=== PATIENT | male | born 1965 | race Caucasian/White ===

== ENCOUNTER 2017-09-18 10:27 | Inpatient (IN) ==
[2017-09-18] MEDS ORDERED: Naloxone 0.4 MG/ML INJ IVP PRN (16:44)
[2017-09-18] MEDS ORDERED: Acetaminophen 325 MG TABLET PO PRN (17:38)
--- NOTE | 2017-09-18 19:07 | Internal Med History&Physical ---
Date of Encounter: 09/18/17 Time of Encounter: 11:00 Internal Medicine - H&P: HPI Chief complaint: Shortness of breath Admitted From: Intrahospital Transfer Plans for Post Hospital Care: Home History of present illness: Patient is a 52-year-old male with no significant past medical history who was transferred from [place] inpatient unit due to acute systolic heart failure. Patient reports a 4 month history of dyspnea on exertion and chest pressure which has gradually gotten worse over the last 2 months so decided to go to the hospital for evaluation. During inpatient stay at [facility], an echocardiogram was done which showed EF of 15%. Patient was transferred to [facility] inpatient for cardiology consult for determination if reduced EF due to ischemia or some other cause needing a pacemaker. Past Med Surg Social Fam HX - Past Medical History Medical history: no medical history Psychiatric history: no psych history - Past Surgical History Surgical History: no surgical history - Social History Smoking Status: Never smoker Smokeless Tobacco Status: No Alcohol use: none Drug use: none - Family History Father Adopted: No Family Member Ethnicity: Non- Living Status: Hx Family Cardiac Disorders: Yes Hx Family Respiratory Disorders: No Hx Family Cancer: No Hx Family GI Disorders: No Hx Family Endocrine Disorder: Yes Hx Family Neuromuscular Disorders: No Hx Family Neurologic Disorders: No Hx Family HEENT Disorders: No Hx Family Autoimmune Disorders: No Internal Medicine - H&P: Meds Albuterol Sulfate [Albuterol Inhaler] 1 - 2 puff IH Q6HR PRN #1 hfa.aer.ad 08/06 [Rx] Montelukast [Singulair] 10 mg PO HS #30 tablet 08/06/17 [Rx] 3 Allergy/AdvReac Type Severity Reaction Status Date / Time Amoxicillin Allergy Hives Verified 09/18/17 16:52 latex Allergy Rash Verified 09/18/17 16:52 All Systems PM: A 10-system review of systems was performed and is negative for pertinent findings except as documented above in the HPI. - Constitutional Vitals: Temp Pulse Resp BP Pulse Ox 98.3 F 108 19 137/81 97 09/18/17 16:51 09/18/17 16:51 09/18/17 16:51 09/18/17 16:51 09/18/17 16:51 General appearance: Present: A&O X 3, no acute distress - Eye Eye exam: Present: normal appearance - ENT ENT exam: Present: normal exam - Respiratory Respiratory exam: Present: CTAB. Absent: respiratory distress - Cardiovascular Cardiovascular exam: Present: RRR, +S1, +S2. Absent: diastolic murmur, gallop, rubs, systolic murmur - GI/Abdominal GI/Abdominal exam: Present: normal bowel sounds, soft, no peritoneal signs. Absent: distended, tenderness - Extremities Exam Extremities exam: Absent: pedal edema - Neurological Exam Neurological exam: Present: oriented X3 - Psychiatric Psychiatric exam: Present: normal mood - Skin Skin exam: Present: normal color - Assessment and plan (1) Acute systolic heart failure Current Visit: Yes Status: Acute Assessment and plan: During inpatient stay at [facility], an echocardiogram was done which showed EF of 15%. Will continue IV diuresis Cardiology consulted and appreciate recommendations (2) DVT prophylaxis Current Visit: Yes Status: Acute Assessment and plan: Subcutaneous heparin - Time Spent With Patient Total time spent is greater than 50% in coordination of care (as documented) at patient's floor/unit and/or counseling patient:
[2017-09-18] MEDS: *HR* Heparin 5,000 UNIT/ML VIAL SQ SCH (21:08)
[2017-09-18] MEDS: Furosemide 20 MG/2 ML VIAL IVP SCH (21:08)
[2017-09-19 04:10] LABS: Basophils # 0.1 K/mcL (0.0-0.2); Basophils % 0.8 %; Eosinophils # 0.2 K/mcL (0.0-0.6); Eosinophils % 1.9 %; Hematocrit 40.3 % (37.5-50.1); Hemoglobin 13.5 g/dL (12.9-16.9); Immature Granulocytes % 0.2 % (0-4); Lymphocytes # 2.1 K/mcL (0.6-4.6); Lymphocytes % 21.9 %; Mean Corpuscular HGB Conc 33.5 g/dL (31.6-35.5); Mean Corpuscular Hemoglobin 29.5 pg (28.0-33.3); Mean Platelet Volume 9.3 fL (9.4-12.4); Monocytes # 0.7 K/mcL (0.0-1.3); Neutrophils # 6.7 K/mcL (1.6-8.9); Platelet Count 328 K/mcL (140-400); Red Blood Count 4.58 M/mcL (4.19-5.50); Red Cell Distribution Width 13.5 % (11.5-14.5); Segmented Neutrophils % 68.2 %
[2017-09-19 05:07] LABS: BUN/Creatinine Ratio 18 (6-26); Blood Urea Nitrogen 17 mg/dL (6-20); Calcium 9.1 mg/dL (8.6-10.3); Carbon Dioxide 24 mEq/L (23-29); Chloride 102 mEq/L (98-107); Glucose 112 mg/dL (70-105); Osmolality,Calculated 282 (280-300); Potassium 3.7 mEq/L (3.5-5.1); Sodium 135 mEq/L (136-145); eGFR For African Americans > 60 (> 60); eGFR For Non-African Americans > 60 (> 60)
[2017-09-19] MEDS: *HR* Heparin 5,000 UNIT/ML VIAL SQ SCH ×3 (06:12→21:00)
--- NOTE | 2017-09-19 07:07 | Cardiology Consult Note ---
Date of Encounter: 09/19/17 Time of Encounter: 08:00 Assessment and Plan (1) Acute systolic heart failure Current Visit: Yes Status: Acute A/R/B of [facility] discussed with patient including 1% chance of [place]//CVA/CABG/FAWN /bleeding. Pt aware and agreeable with proceeding to evaluate for ischemic cause of systolic CHF. Evidence based BB - coreg 3.125mg po BID and lisinopril 2.5mg daily. Continue diuresis until euvolemic, will need maintenance diuretic and may benefit from aldactone. (2) Hypertension Current Visit: No Status: Chronic coreg Qualifiers: Hypertension type: essential hypertension Qualified Code(s): I10 - Essential (primary) hypertension Discussion w patient/family: The assessment and plan as outlined above was discussed with the patient and/or family members who expressed understanding and agreement. All questions were answered. Thank you for involving us in the care of your patient. Please call with any questions. History of Present Illness Consult date: 09/19/17 Consult reason: CHF Chief complaint: dyspnea History of present illness: Mr. Burton is a 52 year old male with no previous cardiac history presented to [place] with progressive dyspnea on exertion, weight gain and edema over last 2 months. TTE revealed EF 15%. He denies alcohol abuse and does not recall a viral illness. He has occasional chest tightness. Additionally, he notes his sister (<65) with premature CAD. Past Med Surg Social Fam HX - Past Medical History Medical history: no medical history Psychiatric history: no psych history - Past Surgical History Surgical History: no surgical history - Social History Smoking Status: Never smoker Smokeless Tobacco Status: No Alcohol use: none Drug use: none - Family History Father Adopted: No Family Member Ethnicity: Non- Living Status: Hx Family Cardiac Disorders: Yes Hx Family Respiratory Disorders: No Hx Family Cancer: No Hx Family GI Disorders: No Hx Family Endocrine Disorder: Yes Hx Family Neuromuscular Disorders: No Hx Family Neurologic Disorders: No Hx Family HEENT Disorders: No Hx Family Autoimmune Disorders: No Medications and Allergies Albuterol Sulfate [Albuterol Inhaler] 1 - 2 puff IH Q6HR PRN #1 hfa.aer.ad 08/06 [Rx] Montelukast [Singulair] 10 mg PO HS #30 tablet 08/06/17 [Rx] 3 Allergy/AdvReac Type Severity Reaction Status Date / Time Amoxicillin Allergy Hives Verified 09/18/17 16:52 latex Allergy Rash Verified 09/18/17 16:52 All Systems Review: The remainder of the systems were reviewed and are negative - Constitutional Constitutional: no chills, no fever(s) - EENT Eyes: no blurred vision, no loss of vision Nose, mouth and throat: no bleeding gums, no epistaxis - Cardiovascular Cardiovascular: chest pain with exertion, no chest pain at rest - Respiratory Respiratory: no hemoptysis, no wheezing - Gastrointestinal Gastrointestinal: no hematemesis, no hematochezia - Genitourinary Genitourinary: no dysuria, no hematuria - Musculoskeletal Musculoskeletal: no back pain, no myalgias - Integumentary Integumentary: no rash, no unusual bruising - Neurological Neurological: no syncope, no tingling - Psychiatric Psychiatric: no hallucinations, no panic attacks - Hematological/Lymphatic Hematologic/Lymphatic: no easy bleeding, no easy bruising Physical Examination Vital Signs, Last 4 Hours Temp Pulse Resp BP Pulse Ox 09/19/17 03:49 99.0 F 112 18 151/97 97 General: Conversant HEENT: Atraumatic Neck: No JVD Cardiac: Reg Rate and Rhythm Lungs: Other Neuro: Alert and responsive Abdomen: Soft Skin: No rashes noted on visualized skin Musculoskeletal: No Chest Wall Tenderness Extremities: No Edema Results 09/19/17 03:36 09/19/17 03:36 Lab Results 09/19/17 09/19/17 03:36 03:36 WBC 9.8 Hgb 13.5 Hct 40.3 Plt Count 328 Sodium 135 L Potassium 3.7 Chloride 102 Carbon Dioxide 24 BUN 17 Creatinine 0.97 Glucose 112 H Calcium 9.1 - Imaging and Cardiology Echo: image reviewed (severe systolic chf) Consult Discharge Plan - Plan Referrals: NONE,PCP [Primary Care Provider] - Devonte Chau [Family Provider] -
[2017-09-19] MEDS: Furosemide 20 MG/2 ML VIAL IVP SCH ×2 (08:13→16:04)
[2017-09-19] MEDS: Isosorbide MONOnitrate (24 HR) 30 MG TAB.ER.24H PO SCH (12:43)
--- NOTE | 2017-09-19 21:36 | Internal Med Progress Note ---
Date of Encounter: 09/19/17 Time of Encounter: 16:47 - Assessment and plan (1) Acute systolic heart failure Current Visit: Yes Status: Acute Assessment and plan: Cardiology consulted; appreciate input. Will await their recommendations. Continue IV lasix 20 mg BID for the time being. (2) DVT prophylaxis Current Visit: Yes Status: Acute Assessment and plan: Continue SQ heparin. - Time Spent With Patient Total time spent is greater than 50% in coordination of care (as documented) at patient's floor/unit and/or counseling patient: less than 15 minutes - Subjective Interval history: Patient had no acute events overnight. He is doing well today. He seems to be in good spirits. He has no complaints at this time. He denies chest pain, SOB , fever, chills, nausea, vomiting, or abdominal pain. He is putting out good urine per nursing staff. - Constitutional Vitals: Temp Pulse Resp BP Pulse Ox 98.2 F 103 18 103/58 94 09/19/17 19:59 09/19/17 19:59 09/19/17 19:59 09/19/17 19:59 09/19/17 19:59 General appearance: Present: cooperative, A&O X 3, pleasant, no acute distress, answers questions appropriately - Respiratory Respiratory exam: Present: CTAB. Absent: accessory muscle use, rales, rhonchi, wheezes Additional comments: Normal WOB - Cardiovascular Cardiovascular exam: Present: RRR, +S1, +S2. Absent: diastolic murmur, gallop, rubs, systolic murmur Additional comments: No BLE edema - GI/Abdominal GI/Abdominal exam: Present: normal bowel sounds, soft. Absent: distended, hepatomegaly, mass, splenomegaly, tenderness - Psychiatric Psychiatric exam: Present: normal affect, normal mood. Absent: agitated, anxious, depressed - Skin Skin exam: Present: dry, intact, warm. Absent: cyanosis, rash Internal Medicine: Result - Labs CBC & Chem 7: 09/19/17 03:36 09/19/17 03:36 Labs: Short CBC 09/19/17 Range/Units 03:36 WBC 9.8 (4.3-11.1) K/mcL Hgb 13.5 (12.9-16.9) g/dL Hct 40.3 (37.5-50.1) % Plt Count 328 (140-400) K/mcL Neutrophils # 6.7 (1.6-8.9) K/mcL BMP 09/19/17 03:36 Sodium 135 L Potassium 3.7 Chloride 102 Carbon Dioxide 24 BUN 17 Creatinine 0.97 Glucose 112 H Calcium 9.1 Consult Discharge Plan - Plan Referrals: NONE,PCP [Primary Care Provider] - Devonte Chau [Family Provider] -
[2017-09-20 03:35] LABS: BUN/Creatinine Ratio 19 (6-26); Blood Urea Nitrogen 19 mg/dL (6-20); Calcium 9.4 mg/dL (8.6-10.3); Carbon Dioxide 24 mEq/L (23-29); Chloride 103 mEq/L (98-107); Glucose 108 mg/dL (70-105); Osmolality,Calculated 287 (280-300); Potassium 4.1 mEq/L (3.5-5.1); Sodium 137 mEq/L (136-145); eGFR For African Americans > 60 (> 60); eGFR For Non-African Americans > 60 (> 60)
[2017-09-20] MEDS: *HR* Heparin 5,000 UNIT/ML VIAL SQ SCH ×3 (05:52→23:05)
[2017-09-20] MEDS ORDERED: Verapamil 5 MG/2 ML VIAL ONE (07:36)
[2017-09-20] MEDS ORDERED: 0.9 % Sodium Chloride 1,000 ML ONE ×2 (07:36→07:52)
[2017-09-20] MEDS ORDERED: *HR* Heparin 10,000 UNIT/10 ML VIAL ONE (07:36)
[2017-09-20] MEDS ORDERED: Nitroglycerin 1,000 MCG/10 ML VIAL IV ONE (07:36)
[2017-09-20] MEDS ORDERED: Heparin 1,000 UNITS/500 mL 500 ML ONE (07:36)
[2017-09-20] MEDS ORDERED: ISOVUE-370 200 ML INFUS..BTL IV ONE (07:36)
[2017-09-20] MEDS ORDERED: *HR* Midazolam HCl 2 MG/2 ML VIAL ONE (07:54)
[2017-09-20] MEDS ORDERED: *HR* FentaNYL (PF) 100 MCG/2 ML VIAL ONE (07:54)
--- NOTE | 2017-09-20 08:01 | Pre-Sedation Evaluation ---
Pre-sedation evaluation - Pre-sedation checklist Date of procedure: 09/20/17 Procedure: heart cath Recent Vitals: Last Vital Signs Temp 97.9 F 09/20/17 06:54 Pulse 90 09/20/17 06:54 Resp 18 09/20/17 06:54 BP 126/75 09/20/17 06:54 Pulse Ox 97 09/20/17 06:54 H&P (including ROS) documented in medical record: Yes Previous reaction to sedatives/anesthetics: No Dietary Status: NPO after Midnight Dentition: No loose teeth or bridges ASA Classification *see protocol: CLASS II-Mild systemic disease Plan of Care: Pt appropriate candidate for procedure/moderate/conscious sedation , Risks/benefits of procedure/sedation discussed w/ patient/family
[2017-09-20] MEDS: Isosorbide MONOnitrate (24 HR) 30 MG TAB.ER.24H PO SCH (08:43)
[2017-09-20] MEDS: Furosemide 20 MG/2 ML VIAL IVP SCH (08:44)
--- NOTE | 2017-09-20 12:31 | Event Note ---
Date of Encounter: 09/20/17 Time of Encounter: 12:28 - Cardiology Event Note S/P LHC, no intervention. 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 Will stop Imdur. Recommend Lifevest to prevent sudden cardiac . Discussed with Dr. Hodge and Dr. Fulton. Ordered. Pt appears euvolemic on exam--switch to PO Lasix 20mg BID. Continue BB and ACEi for NICMP. BP marginal currently. If BP tolerates, would ideally be on Aldactone 12.5mg daily. Can re-evaluate at follow-up. Okay to d/c home once lifevest is applied.
--- NOTE | 2017-09-20 13:12 | Invasive Diagnostic Lab Proc ---
Name: Miguel Burton Date of Study: 09/20/2017 Date: 1965 Ht: 65.0in Medical Record#: [id number] Age: 52 Wt: 169.76lb Gender: Male BSA: 1.84 Order #: [id number] BMI: 28.28 Physicians Procedure Physician: Tomer Fulton MD, [facility] Referring MD: Referring MD: Staff Name Position Time In Olive Christy RT (R) Monitor 08:03 AM Kyaw Jonesian RT (R) Scrub 08:03 AM Magdalena Patterson RN Harvesting Supervisor 08:03 AM Indications Indication Cardiomyopathy Procedures Performed Procedure L HRT ARTERY/VENTRICLE ANGIO Pre-Procedure Checklist Informed consent is complete signed and on chart. H&P is on chart. ID band is on and ID verified with patient. Patient NPO for procedure The procedure was described for the patient and questions were answered. ECG is on chart. Plan of Care Patient will tolerate the procedure without complications. Adequate level of comfort will be maintained. Hemodynamics will remain stable Patient will recover from procedure without complications. Respiratory function will be maintained. Cardiac rhythm will remain stable. Patient temperature will be maintained. Patient and/or family have verbalized understanding of the procedure. Patient Education Chief Complaint/Reason for Test: Cardiac Cath Developmental Category: Adult (18-64 years) Developmentally Appropriate for Age: Yes Learning Barriers: None Education Needs: Procedure Education Method: Verbal Information Taught: Cardiac Cath Educational Evaluation: Able to repeat information Intravenous Access Time IV Size Location DC'd Fluid/Drip Rate Units RN 08:00 AM 18g 1 1/4" Patent On Arrival Rt Arm 0.9NaCl 25 ml/hr Allergies Amoxicillin latex Vital Signs Time BP (mmHg) HR (bpm) O2 Sat. RR (bpm) LOC 08:04 AM / % 4 = Oriented but drowsy 08:04 AM / % 4 = Oriented but drowsy 07:58 AM 137 / 100 94 96 % 08:03 AM 138 / 85 91 91 % 08:08 AM 129 / 72 88 99 % 08:13 AM 128 / 81 93 95 % 08:18 AM 120 / 79 89 91 % 08:23 AM 132 / 87 87 90 % Procedural Medications Time Medication Dose Units Method Given By 08:04 AM Oxygen 4 L/min nasal cannula Magdalena Patterson RN 08:04 AM Versed 2 mg Intravenous Magdalena Patterson RN 08:04 AM Fentanyl 50 mcg Intravenous Magdalena Patterson RN 08:11 AM Lidocaine 2% 0.5 ml Subcutaneous Tomer Fulton MD, [facility] 08:12 AM Heparin 4000 units Nitroglycerin 200 mcg Verapamil 2.5 mg Intraarterial Tomer Fulton MD, [facility] ASA Classification: CLASS II- Mild systemic disease (i.e. well-controlled diabetes, hypertension, asthma, cigarette smoking) Priyanka Score Preprocedure Postprocedure Activity 2- Moves 4 extremities sustained head lift Activity 2- Moves 4 extremities sustained head lift Circulation 2- SBP +/= 20 points of pre-anesthetic level Circulation 2- SBP +/= 20 points of pre-anesthetic level Consciousness 2- Awake and alert oriented x 3 Consciousness 2- Awake and alert oriented x 3 O2 Saturation 2- Able to maintain O2 satruation of 92% on room air O2 Saturation 2- Able to maintain O2 satruation of 92% on room air Respiratory 2- Able to deep breathe and cough well Respiratory 2- Able to deep breathe and cough well Total Score 10 Total Score 10 Contrast Agent: Isovue Diagnostic Contrast: 56 ml Total Contrast: 56 ml Fluoro Dose: 232 mGy Procedure Log Time Note Enter By 07:58 AM Vitals capture started with the following parameters, Patient=Adult, Interval=5 min, Initial Hxhtimao=417 mmHg, Deflation Rate=5 mmHg, Cuff placed on Right Arm 07:58 AM HR=94 bpm, GKQX=202/100 mmhg, SpO2=96.0 % 08:02 AM Recorded ECG: HR=95 Condition=Condition 1 08:03 AM Pt arrived to lab analyst 2 at 08:02 [email or web address] 08:03 AM Olive Christy RT (R) Position: Monitor Time in: 08:03 [email or web address] 08:03 AM Obed Jones RT (R) Position: Scrub Time in: 08:03 [email or web address] 08:03 AM Magdalena Patterson RN Position: Harvesting Supervisor Time in: 08:03 [email or web address] 08:03 AM Patient charges- Angio tray pack, Navilyst 3mm J, Pulse Oximetry and ACIST tubing and transducer [email or web address] 08:03 AM Case Delayed No [email or web address] 08:03 AM Hair removed from procedure site in holding area using clippers. Right wrist prepped with Chloraprep by Olive Christy RT (R), then patient was draped. Skin intact. [email or web address] 08:03 AM HR=91 bpm, WSWD=037/85 mmhg, SpO2=91.0 %, Comment=SR 08:03 AM Hair removed from procedure site in holding area using clippers. Right groin prepped with Chloraprep by Olive Christy (R), then patient was draped. Skin intact. [email or web address] 08:03 AM Physican paged/called 08:03. [email or web address] 08:04 AM Physician arrived 08:04 [email or web address] 08:04 AM ASA Class CLASS II- Mild systemic disease (i.e. well-controlled diabetes, hypertension, asthma, cigarette smoking) [email or web address] 08:04 AM Meet and fidel completed [email or web address] 08:04 AM Sign in performed according to hospital policy. [email or web address] 08:04 AM Procedure start 08:04 [email or web address] 08:04 AM Time: 08:04 Oxygen on at 4 L/min per nasal cannula by Magdalena Patterson RN [email or web address] 08:04 AM Time: 08:04 Versed 2 mg Intravenous Given by Magdalena Patterson RN [email or web address] 08:04 AM Time: 08:04 Fentanyl 50 mcg Intravenous Given by Magdalena Patterson RN [email or web address] 08:04 AM Time: 08:04 Patient comfortable and pain free: Yes [email or web address] 08:04 AM Time: 08:04LOC: 4 = Oriented but drowsy [email or web address] 08:07 AM Pressure channel 1 zeroed. 08:08 AM HR=88 bpm, BPDE=758/72 mmhg, SpO2=99.0 %, Comment=NSR 08:10 AM Pressure channel 1 zeroed. 08:11 AM Time out performed according to hospital policy [email or web address] 08:11 AM Time: 08:11 0.5 ml Lidocaine 2% to right radial Subcutaneous [email or web address] 08[facility]12 AM Access obtained by percutaneous puncture. 6Fr 10cm Terumo Glidesheath sheath placed in right Radial artery. [id number] [email or web address] 08:12 AM 0.035 260cm Navilyst 3mmJ wire [id number] [email or web address] 08:12 AM Time: 08:12 Patient given 4,000 units Heparin, 200 mcg Nitroglycerin, and 2.5 mg Verapamil Intraarterial by Tomer Fulton MD, [facility]. This is given to reduce risk of vessel spasm and thrombosis. [email or web address] 08:13 AM 5Fr TIG catheter inserted over the wire DN [email or web address] 08:13 AM HR=93 bpm, KSEY=706/81 mmhg, SpO2=95.0 %, Comment=NSR 08:14 AM RCA angiography performed in multiple views. [email or web address] 08:15 AM Recorded Pressure: Ao, HR=94, Condition=Condition 1 (Aorta) Ao 93/80/86 08:16 AM LCA angiography performed in multiple views. [email or web address] 08:16 AM Coronary Dominance: Co-dominant [email or web address] 08:16 AM Recorded Pressure: Ao, HR=90, Condition=Condition 1 (Aorta) Ao 97/80/89 08:16 AM Recorded Pressure: Ao, HR=87, Condition=Condition 1 (Aorta) Ao 99/80/89 08:17 AM Catheter removed [email or web address] 08:17 AM 5Fr Pigtail catheter inserted over the wire [facility] [email or web address] 08:18 AM Catheter selectively placed in left ventricle [email or web address] 08:18 AM Pressure channel 1 zero failed. 08:18 AM Pressure channel 1 zeroed. 08:18 AM Bolus angiogram of Ventricle complete: 12 ml/sec for a total of 36 mls [email or web address] 08:18 AM HR=89 bpm, NUCQ=072/79 mmhg, SpO2=91.0 % 08:18 AM Recorded Pressure: LV, HR=90, Condition=Condition 1 (Left Ventricle) LV 123/5/13 08:19 AM Recorded Pressure: LV, Ao, HR=85, Condition=Condition 1 (Left Ventricle) LV 116/4/13, (Aorta) Ao 106/23/59 08:19 AM Catheter removed [email or web address] 08:20 AM Time: 08:04LOC: 4 = Oriented but drowsy [email or web address] 08:20 AM Time: 08:04 Patient comfortable and pain free: Yes [email or web address] 08:20 AM Procedure completed at 08:20 [email or web address] 08:20 AM Did you address KARUNA flow and Dominance? Yes [email or web address] 08:21 AM Sign out completed: Radiation Dose 231.74 mGy Fluoro Time: 1.4 Isovue 370 - 200ml contrast 55.6 ml given by Tomer Fulotn MD, [facility]. Complications: NoneCardiac Rehab Consult needed: NoConfirmed administered medications: Yes [email or web address] 08:21 AM Isovue 370 - 200ml,1 Bottle(s) used. [email or web address] 08:21 AM Arterial sheath pulled, Vasc Band closure device used and was Successful S/N. [email or web address] 08:21 AM 12 ml air in Vasc Band. [email or web address] 08:21 AM Estimated Blood Loss: minimal [email or web address] 08:21 AM Post ECG NSR [email or web address] 08:22 AM Post Blood Pressure 120/79 [email or web address] 08:22 AM 08:22 Post Pulses Rt Radial 2+ [email or web address] 08:22 AM Information taught Cardiac Cath [email or web address] 08:22 AM Education needs Procedure, Plan of Care, and Disease Process [email or web address] 08:22 AM Learning barriers :None [email or web address] 08:22 AM Education Methods Verbal [email or web address] 08:22 AM Education evaluation Able to repeat information [email or web address] 08:22 AM Site status No bleeding/hematoma - Rt Wrist as reported by Obed Jones RT (R) at 08:22 [email or web address] 08:22 AM Delay to floor No [email or web address] 08:23 AM Family placed in Not avilable. [email or web address] 08:23 AM Complications: None [email or web address] 08:23 AM Fluoro Time: 1.4 [email or web address] 08:23 AM Isovue 370 - 200ml contrast 55.[address] Fulton. [email or web address] 08:23 AM Radiation Dose 231.74 mGy [email or web address] 08:23 AM HR=87 bpm, TXLO=460/87 mmhg, SpO2=90.0 %, Comment=NSR 08:29 AM Report given to RN Pt taken to 2A Room #38. 08:29 [email or web address] 08:29 AM Patient out of room: 08:29 [email or web address] Complications Complication None None Hemodynamics Pressures Site Systolic/A Wave Diastolic/V Wave Mean AO 93 80 86 AO 97 80 89 AO 99 80 89 LV 123 5 13 LV 116 4 13 AO 106 23 59 Post Procedure Information Blood Pressure: 120/79 mmHg Rhythm: NSR Post procedural instructions were given Closure Device Time Device Success/Fail 09/20/2017 8:26:00 AM Mechanical Compression Successful Site Checks Time Location Status Staff Sheath In? Note 08:22 AM Rt Wrist No bleeding/hematoma Obed Jones RT (R) Pulses Time Site Pre-Procedure Post-Procedure Note Bilateral DP & PT 2+ Bilateral radial 2+ 8:22:00 AM Rt Radial 2+ Updated by Olive Christy, RT(R) on 09/20/2017 8:29:44 AM electronically signed on 09/20/2017 8:30:13 AM with status of Final
[2017-09-20] MEDS: Furosemide 20 MG TABLET PO SCH (16:16)
--- NOTE | 2017-09-20 22:27 | Internal Med Progress Note ---
Date of Encounter: 09/20/17 Time of Encounter: 12:00 - Assessment and plan (1) Acute systolic heart failure Current Visit: Yes Status: Acute Assessment and plan: Cardiology consulted; appreciate input. Will await their recommendations. Getting life vest today. Continue IV lasix 20 mg BID for the time being. (2) DVT prophylaxis Current Visit: Yes Status: Acute - Time Spent With Patient Total time spent is greater than 50% in coordination of care (as documented) at patient's floor/unit and/or counseling patient: less than 15 minutes - Subjective Interval history: Patient had no acute events overnight. He is doing well today. He seems to be in good spirits. He has no complaints at this time. He denies chest pain, SOB , fever, chills, nausea, vomiting, or abdominal pain. He is putting out good urine per nursing staff. S/P LHC. Cardiology working on life vest. Plan for possible discharge tomorrow. - Constitutional Vitals: Temp Pulse Resp BP Pulse Ox 97.8 F 94 18 115/72 96 09/20/17 19:30 09/20/17 19:30 09/20/17 19:30 09/20/17 19:30 09/20/17 19:30 General appearance: Present: cooperative, A&O X 3, pleasant, no acute distress, answers questions appropriately - Respiratory Respiratory exam: Present: CTAB. Absent: accessory muscle use, rales, rhonchi, wheezes Additional comments: Normal WOB - Cardiovascular Cardiovascular exam: Present: RRR, +S1, +S2. Absent: diastolic murmur, gallop, rubs, systolic murmur Additional comments: No BLE edema - GI/Abdominal GI/Abdominal exam: Present: normal bowel sounds, soft. Absent: distended, hepatomegaly, mass, splenomegaly, tenderness - Psychiatric Psychiatric exam: Present: normal affect, normal mood. Absent: agitated, anxious, depressed - Skin Skin exam: Present: dry, intact, warm. Absent: cyanosis, rash Internal Medicine: Result - Labs CBC & Chem 7: 09/19/17 03:36 09/20/17 02:57 Labs: BMP 09/20/17 02:57 Sodium 137 Potassium 4.1 Chloride 103 Carbon Dioxide 24 BUN 19 Creatinine 1.01 Glucose 108 H Calcium 9.4 Consult Discharge Plan - Plan Referrals: NONE,PCP [Primary Care Provider] -
[2017-09-21 04:58] LABS: Basophils # 0.1 K/mcL (0.0-0.2); Basophils % 0.8 %; Eosinophils # 0.4 K/mcL (0.0-0.6); Eosinophils % 4.7 %; Hematocrit 41.9 % (37.5-50.1); Immature Granulocytes % 0.3 % (0-4); Lymphocytes # 2.6 K/mcL (0.6-4.6); Lymphocytes % 33.1 %; Mean Corpuscular HGB Conc 33.4 g/dL (31.6-35.5); Mean Corpuscular Hemoglobin 29.2 pg (28.0-33.3); Mean Corpuscular Volume 87.3 fL (83.0-100.0); Monocytes # 0.8 K/mcL (0.0-1.3); Monocytes % 9.9 %; Neutrophils # 4.1 K/mcL (1.6-8.9); Platelet Count 340 K/mcL (140-400); Red Cell Distribution Width 13.3 % (11.5-14.5); Segmented Neutrophils % 51.2 %
[2017-09-21 05:20] LABS: BUN/Creatinine Ratio 22 (6-26); Blood Urea Nitrogen 22 mg/dL (6-20); Calcium 9.4 mg/dL (8.6-10.3); Carbon Dioxide 26 mEq/L (23-29); Chloride 101 mEq/L (98-107); Glucose 104 mg/dL (70-105); Osmolality,Calculated 284 (280-300); Potassium 3.7 mEq/L (3.5-5.1); Sodium 135 mEq/L (136-145); eGFR For African Americans > 60 (> 60); eGFR For Non-African Americans > 60 (> 60)
[2017-09-21] MEDS: *HR* Heparin 5,000 UNIT/ML VIAL SQ SCH (05:24)
[2017-09-21 07:12] VITALS: BP 146/90
[2017-09-21] MEDS: Furosemide 20 MG TABLET PO SCH (08:24)
--- NOTE | 2017-09-21 09:52 | Discharge Summary ---
- NOTES TO OUTPATIENT PROVIDER Notes to Outpatient Provider: f/u with PCP in one week. f/u with Cardiology Dr. Hodge in one week. Please continue wearing Life vest Orders not resulted at time of discharge: Pending orders 09/19/17 10:04 Left Heart Cath [CL Cardiac Catheterization] [CL] Routine Date of Encounter: 09/21/17 Time of Encounter: 09:48 - Discharge Diagnosis (1) Acute systolic heart failure Priority: Primary Status: Acute (2) DVT prophylaxis Priority: Secondary Status: Acute (3) Non-ischemic cardiomyopathy Priority: Secondary Status: Acute Hospital course: Patient is a 52-year-old male with no significant past medical history who was transferred from [place] inpatient unit due to acute systolic heart failure. Patient reports a 4 month history of dyspnea on exertion and chest pressure which has gradually gotten worse over the last 2 months so decided to go to the hospital for evaluation. During inpatient stay at [facility], an echocardiogram was done which showed EF of 15%. Patient was transferred to [facility] inpatient for cardiology consult for determination if reduced EF due to ischemia or some other cause needing a pacemaker. Pt was admitted here and started him on IV Laisx, BB and ACEI. He did go for C which did not show any obstruction. He does have non ischemic cardiomyopathy. Card also recommend to start pt on life vest and f/u with them as an out pt for EPS studies. I did discuss all these instructions with pt. - Time Spent with Patient Total time spent providing and/or coordinating discharge services: - Discharge Medications Prescriptions: Carvedilol [Coreg] 6.25 mg PO BIDWM #60 tablet Furosemide [Lasix] 20 mg PO BIDDIURETIC #60 tablet Lisinopril [Zestril] 2.5 mg PO DAILY #30 tablet Omeprazole [PriLOSEC] 20 mg PO DAILY@0630 #30 capsule. Home Medications: Albuterol Sulfate [Albuterol Inhaler] 1 - 2 puff IH Q6HR PRN #1 hfa.aer.ad 08/06 [Rx] Montelukast [Singulair] 10 mg PO HS #30 tablet 08/06/17 [Rx] Carvedilol [Coreg] 6.25 mg PO BIDWM #60 tablet 09/21/17 [Rx] Furosemide [Lasix] 20 mg PO BIDDIURETIC #60 tablet 09/21/17 [Rx] Lisinopril [Zestril] 2.5 mg PO DAILY #30 tablet 09/21/17 [Rx] Omeprazole [PriLOSEC] 20 mg PO DAILY@0630 #30 capsule. 09/21/17 [Rx] Allergies/Adverse Reactions: 3 Allergy/AdvReac Type Severity Reaction Status Date / Time Amoxicillin Allergy Hives Verified 09/18/17 16:52 latex Allergy Rash Verified 09/18/17 16:52 Date of admission: 09/18/17 16:44 Primary care physician: PCP NONE Consults: 09/18/17 19:12 Consult to Cardiology [CONS] Routine Comment: Consulting Provider: Cardiology Sushma Reason for Consult: New onset of acute systolic heart failure with EF of 15% Time Notified: 19:00 Call Completed: Yes 09/20/17 07:52 Consult to Nurse Navigator [CONS] Routine Comment: CHF - Constitutional Vitals: Temp Pulse Resp BP Pulse Ox 99.1 F 101 18 146/90 98 09/21/17 07:08 09/21/17 07:08 09/21/17 07:08 09/21/17 07:08 09/21/17 07:08 General appearance: Present: cooperative, A&O X 3, pleasant, no acute distress, answers questions appropriately - Head Head exam: Present: atraumatic, normal inspection - Neck Neck exam general surgery: Present: supple - Respiratory Respiratory exam: Present: decreased breath sounds. Absent: rales, respiratory distress, rhonchi, wheezes - Cardiovascular Cardiovascular exam: Present: RRR, +S1, +S2. Absent: tachycardia - GI/Abdominal GI/Abdominal exam: Present: soft. Absent: rebound, rigid - Extremities Exam Extremities exam: Present: pedal edema (trace). Absent: calf tenderness, tenderness - Back Exam Back exam: Absent: CVA tenderness (L), CVA tenderness (R) - Neurological Exam Neurological exam: Present: alert, oriented X3 - Patient Status Disposition: Home, Self-Care Condition: Good Overall status at discharge: patient is back to baseline - Discharge Instructions Follow Up With: NONE,PCP [Primary Care Provider] - Amanda Hodge [Partnered Physician] - - Diet and Activity Activity: increase activity as tolerated Diet: low salt diet
== END 2017-09-21 11:20 | disposition home or self-care (01) | DRG 287 ==
LOC: 2ANU → SUATTDRO 16:44
PROVIDERS: ADMIT Hospitalist; ATTEND Family Medicine